=== PATIENT | female | born 1985 | race African-American/Black ===

== ENCOUNTER 2020-12-29 13:31 | Emergency (ER) | payer MEDICAID ==
[2020-12-29 15:13] LABS: Hemoglobin 13.6 g/dL (12.0-16.0); Mean Corpuscular HGB CONC 32.6 g/dL (32.0-36.0); Mean Corpuscular Hemoglobin 26.9 pg (27.0-31.0); Mean Corpuscular Volume 82.4 fL (78.0-98.0); Mean Platelet Volume 7.5 fL (7.4-10.4); Platelet Count 361 thou/uL (130-400); RBC Distribution Width 16.4 % (11.5-14.5); Red Blood Cell (RBC) Count 5.07 mill/uL (4.20-5.40)
[2020-12-29] MEDS ORDERED: Morphine 4 MG/ML VIAL ONE ×2 (15:22→15:54)
[2020-12-29] MEDS ORDERED: Ondansetron ODT 4 MG TAB ONE (15:23)
[2020-12-29 15:32] LABS: ALT (SGPT) 8 U/L (8-55); AST (SGOT) 15 U/L (5-34); Albumin 4.2 g/dL (3.5-5.0); Alkaline Phosphatase 103 U/L (40-110); Anion Gap 11 mmol/L (10-20); BUN (Urea Nitrogen) 6 mg/dL (7.0-18.7); Bilirubin, Total 0.6 mg/dL (0.2-1.2); Calc. Creatinine Clearance 0 mL/min (70-130); Calcium 9.2 mg/dL (7.8-10.44); Carbon Dioxide 23 mmol/L (22-29); Chloride 105 mmol/L (98-107); Globulin 3.9 g/dL (2.4-3.5); Glucose 99 mg/dL (70-105); Potassium 3.5 mmol/L (3.5-5.1); Protein, Total 8.1 g/dL (6.0-8.3); Sodium 135 mmol/L (136-145)
[2020-12-29 15:40] LABS: Band 2 % (5-11); Eosinophils 4 % (0-10); Lymphocytes 45 % (21-51); MDiff Complete? YES; Monocytes 2 % (0-10); Neutrophil 41 % (42-75); Reactive Lymphocytes 6 % (0-10)
== END 2020-12-29 16:50 | disposition home or self-care (01) ==
LOC: ERS 13:31
DX: S46.212A Strain of muscle, fascia and tendon of other parts of biceps, left arm, initial encounter (principal); F17.210 Nicotine dependence, cigarettes, uncomplicated; X58.XXXA Exposure to other specified factors, initial encounter
CPT/HCPCS: 36415; 71045; 80053; 84484; 85025; 93005; 96372; J2270; Q0162

== ENCOUNTER 2025-06-25 13:00 | Emergency (ER) | payer MEDICARE, MEDICAID ==
[2025-06-25] MEDS ORDERED: Acetaminophen/Codeine 30-300mg Tablet ONE (14:35)
== END 2025-06-25 14:50 | disposition home or self-care (01) ==
LOC: ERS 13:00
DX: K04.7 Periapical abscess without sinus (principal); K02.9 Dental caries, unspecified; F17.210 Nicotine dependence, cigarettes, uncomplicated
CPT/HCPCS: 96372; 99282